=== PATIENT | male | born 1975 | race Hispanic/Latino ===

== ENCOUNTER 2020-08-13 23:51 | Emergency (ER) | payer OTHER ==
[~2020-08-13] VITALS: Ht 175.3 cm; Wt 102.5 kg
[2020-08-14] MEDS ORDERED: LIDOCAINE HCL 1% 20 ML VIAL ONE (03:01)
[2020-08-14] MEDS ORDERED: KETOROLAC 60 MG VIAL (30MG/ML) ONE (03:35)
[2020-08-14] MEDS ORDERED: SULFAMETHOX-TMP DS 800/160 TAB ONE (03:35)
== END 2020-08-14 06:33 | disposition left against medical advice (07) ==
LOC: EDH 23:51
DX: L02.415 Cutaneous abscess of right lower limb (principal); Z53.21 Procedure and treatment not carried out due to patient leaving prior to being seen by health care provider
CPT/HCPCS: J1885